=== PATIENT | female | born 1965 | race Caucasian/White ===

== ENCOUNTER 2020-09-09 10:03 | Emergency (ER) | payer OTHER, SELFPAY ==
[~2020-09-09] VITALS: Ht 162.6 cm; Wt 79.4 kg
--- NOTE | 2020-09-09 10:10 | NUR ---
Patient triaged and placed in waiting room. VSS and patient appears in no acute distress at this time. Accompanied by self , awaiting available bed, and MD notified of need for MSE.
--- NOTE | 2020-09-09 10:12 | NUR ---
Pt brought by self, A&Ox4, pt presents to ER with cough /congestion/bodyaches, pt states she is positive for covid, skin pink and warm, cap refill <3, VSS.
[2020-09-09 10:26] VITALS: BP_SYST 117
--- NOTE | 2020-09-09 10:38 | NUR ---
Dr Tanner evaluating patient at the tent
[2020-09-09 11:27] VITALS: BP_SYST 117
--- NOTE | 2020-09-09 11:28 | NUR ---
Patient given written and verbal discharge instructions and verbalizes understanding. ER MD discussed with patient the results and treatment provided. Patient in stable condition. ID arm band removed. Rx of Ibuprofen,Promethazine and Zofran given. Patient educated on pain management and to follow up with PMD. Pain Scale 2/10 tolerable for pt. Opportunity for questions provided and answered. Medication side effect fact sheet provided.
[2020-09-09] MEDS ORDERED: INSULIN Lispro 100 UNITS/ML VIAL (humaLOG) ONE (15:16)
== END 2020-09-09 11:27 | disposition home or self-care (01) ==
LOC: SED 10:03
DX: U07.1 COVID-19 (principal); R05 Cough
CPT/HCPCS: 99283